=== PATIENT | male | born 1950 | race Caucasian/White ===

== ENCOUNTER → 2017-03-01 | Outpatient (CLI) | payer MEDICARE, OTHER ==
[2017-03-01 12:00] VITALS: BP 150/70
[2017-03-01 13:10] VITALS: BP 145/70
== END | disposition home or self-care (01) ==
LOC: CHF HDHVI 11:51
PROVIDERS: ATTEND Internal Medicine Cardiovascular Disease
DX: I49.3 Ventricular premature depolarization (principal); L97.921 Non-pressure chronic ulcer of unspecified part of left lower leg limited to breakdown of skin; L03.116 Cellulitis of left lower limb
CPT/HCPCS: G0463

== ENCOUNTER → 2017-03-08 | Outpatient (CLI) | payer MEDICARE, OTHER ==
[2017-03-08 09:35] VITALS: BP 180/66
[2017-03-08 10:45] VITALS: BP 168/60
[2017-03-08 12:23] LABS: Basophils # (auto) 0.1 uL; CONDITION Y; Eosinophils # (auto) 0.7 uL; Eosinophils % (auto) 7.9 % (0.0-7.0); Hematocrit 41.1 % (41.0-53.0); Hemoglobin 13.4 g/dL (13.5-17.5); Lymphocytes # (auto) 2.5 uL; Lymphocytes % (auto) 28.3 % (10.0-50.0); Mean Corpuscular Hemoglobin 27.4 pg (28.0-32.0); Mean Corpuscular Hgb Conc. 32.6 g/dL (32.0-36.0); Mean Platelet Volume 9.4 fL (7.4-10.4); Monocytes # (auto) 0.9 uL; Monocytes % (auto) 10.2 % (0.0-12.0); Neutrophils # (auto) 4.6 uL; Neutrophils % (auto) 52.6 % (37.0-80.0); Platelet Count (auto) 304 10^3/uL (140-450); White Blood Cell 8.7 10^3/uL (4.4-10.8)
[2017-03-08 12:52] LABS: Albumin 3.7 g/dL (3.4-5.0); Alkaline Phosphatase 38 U/L (45-117); Anion Gap 10 (5-15); Aspartate Aminotransferase 67 U/L (15-37); BUN/Creatinine Ratio 23.9; Bilirubin, Direct < 0.1 mg/dL (0-0.2); Bilirubin, Total 0.3 mg/dL (0.2-1.0); Blood Urea Nitrogen 28 mg/dL (7-18); Calcium 9.7 mg/dL (8.5-10.1); Carbon Dioxide 25 mmol/L (21-32); Chloride 104 mmol/L (98-107); Cholesterol 114 mg/dL (< 200); GFR African American 80 mL/min; GFR Non-African American 66 mL/min; Glucose 174 mg/dL (74-106); HDL Cholesterol 46 mg/dL (40-59); LDL Cholesterol 62 mg/dL (< 100); Potassium 4.2 mmol/L (3.5-5.1); Sodium 139 mmol/L (136-145); Total Protein 7.5 g/dL (6.4-8.2); Triglycerides 140 mg/dL (< 150)
== END | disposition home or self-care (01) ==
LOC: LAB 09:09
PROVIDERS: ATTEND Internal Medicine Cardiovascular Disease
DX: I73.9 Peripheral vascular disease, unspecified (principal); L97.829 Non-pressure chronic ulcer of other part of left lower leg with unspecified severity; I83.028 Varicose veins of left lower extremity with ulcer other part of lower leg; I10 Essential (primary) hypertension; E78.00 Pure hypercholesterolemia, unspecified; K74.1 Hepatic sclerosis; E11.9 Type 2 diabetes mellitus without complications; R97.20 Elevated prostate specific antigen [PSA]; R53.81 Other malaise; E03.9 Hypothyroidism, unspecified; D64.9 Anemia, unspecified; E55.9 Vitamin D deficiency, unspecified; N39.0 Urinary tract infection, site not specified; E66.01 Morbid (severe) obesity due to excess calories
CPT/HCPCS: 36415; 80048; 80061; 80076; 82306; 82962; 83036; 84153; 84403; 84443; 85025; G0463

== ENCOUNTER → 2017-03-20 | Outpatient (CLI) | payer MEDICARE, OTHER | END | disposition home or self-care (01) | LOC: Rad HDHVI 10:01 | PROVIDERS: ATTEND Internal Medicine Cardiovascular Disease | DX: I87.8 Other specified disorders of veins (principal) | CPT/HCPCS: 93970 ==

== ENCOUNTER 2020-10-03 19:52 | Emergency (ER) | payer MEDICARE, OTHER ==
[~2020-10-03] VITALS: Ht 180.3 cm; Wt 65.8 kg
[2020-10-03 19:58] VITALS: BP 136/78
== END 2020-10-03 21:43 | disposition left against medical advice (07) ==
LOC: ER 19:52
DX: R06.02 Shortness of breath (principal); Z53.21 Procedure and treatment not carried out due to patient leaving prior to being seen by health care provider